=== PATIENT | male | born 1985 | race Caucasian/White ===

== ENCOUNTER → 2018-02-16 | Outpatient (RCR) | payer MEDICARE, MEDICAID ==
--- NOTE | 2017-11-19 09:16 | OT INITIAL EVALUATION ---
SUBJECTIVE: Patient is a 32 year old left hand dominant male s/p anoxic brain injury (TBI) on May 20, 2004 due to an attempt hang himself with a tie on a jungle gym at a local park in [place] where he was living at the time. 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 Currently, patient lives in [place] in his own apartment with no room mates. Patient does receive services 2 times a day for 30 minutes from [facility] Services to help with ADLs. Patient is able to dress himself and complete grooming and hygiene activities. The mother was present for this evaluation and was able to provide the past history and current situation with her son. Family is very involved in his care, but would like to see the patient be more independent with ADLs and IADLs. 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 Right = 48.3# (Age/gender normative= 121.8#) Left= 52# (Age/gender normative= 110.4#) Lateral Pinch Right = 19.2# (Age/gender normative= 26.4#) Left= 14.7# (Age/gender normative= 26.2#) 3 Point Pinch Right = 16# (Age/gender normative= 24.7#) Left= 11.5# (Age/gender normative= 25.4#) Sensation: reports of numbness in the finger tips of his left hand Special Test: 9 Hole Peg Test (dexterity) Right= 47 seconds (Age/gender normative= 17.7 seconds) Left= 1 minute and one second (Age/gender normative= 18.7 seconds) ASSESSMENT Patient presents with bilateral involuntary movements of the arms which affects his ability to 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 Patient does have excellent UB strength and AROM is WFL bilaterally. Patient does have decreased bilateral crew member and pinch strength. Fine motor coordination in both hands has been affected. The left demonstrated with more difficulty in fine motor activities compared to the right hand. Patient does have a difficult time is recalling step to self cares and would benefit from memory strategies and education on the use of adaptive equipment to help increase his independence with basic self cares and higher level self cares. Patient to benefit from skilled OT intervention to help increase independence with ADLs and IADLs. Short Term Goals 1. Patient will increase crew member strength of both hands by 5# in order to hold onto objects during self care activities. 2. Patient will decrease his time on the 9 Hole Peg Test by 3 seconds in order to complete self cares in a timely manner. 3. Patient will use a visual management system in his apartment to help him located items and place them back into their proper spot. 4. Patient will use a visual management system in his environment to help with cuing of when to perform certain activities like bathing and doing chores. 5. Patient will use a visual management system to help him with grocery shopping and when to place items on the list to purchase from the store. PLAN: Plan to see patient 2 times a week for 6-12 weeks. Plan of care to include : self care re-training, ther ex, there act, adaptive equipment training, energy conservation techniques Thank you for this referral. If you have any questions, concerns, or comments about this report or plan, please contact me at [phone]. Samira Thomas MS, OTR/L Occupational Therapist [facility]
--- NOTE | 2017-12-06 11:48 | SPEECH INITIAL EVALUATION ---
INITIAL SPEECH THERAPY EVALUATION REPORT Patient Name: Jesus Cordero Date of Evaluation: 11-18-2017, 11-30-17 ( pt cx d/t illness between eval dates) Patient : 1985, 32 years Clinician: Aster Velasquez M.S., CCC-DRUG ROOM OPERATOR, Sheba Ha, [facility] Treatment Dx: Moderate Cognitive Deficit BACKGROUND The patient is a 32 year old male who is experiencing an increase cognitive deficits secondary to an anoxic brain injury in 2004. The patient was referred for an evaluation by his physician. He attended the evaluation with his mother , who informed the therapists about the history of his diagnosis and treatment. His mother reported that cognitive deficits are the main concern right now, as the patient is now living in his own apartment through [employer] housing here in [place]. The patient receives support through [employer] for 30 minutes twice a day for assistance in cooking and laundry. His mother reported the use of external memory aids throughout his apartment, but reported that he often forgets to refer to those aids. The patient travels with his backpack which holds his phone and iPad. He uses his phone and iPad primarily as memory aids (e.g., pictures of common locations, reminders on his calendar, etc.). A cognitive evaluation further assessed the specific areas of cognitive concern and the overall severity of deficit. COGNITION Scales of Cognitive Ability for Traumatic Brain Injury (SCATBI) This assessment is a measure of cognitive deficits associated with non- penetrating trauma to the head including traumatic brain injury / acquired brain damage. This measure determined the following results: Subtest Standard Score Percentile Rank SCATBI Standard Score SCATBI Percentile Rank SCATBI Severity Perception and Discrimination 86 18 Moderate Orientation 76 6 Severe Organization 115 84 Borderline Normal Recall 107 68 Mild Reasoning 95 37 Moderate Total 479 Moderate The subtests of the SCATBI assess a hierarchy of cognitive/linguistic skills and performance. The patient scored a total of 479, Moderate Severity (447-481) , on the overall severity scale for the SCATBI. Severe deficits were noted in the orientation section of the SCATBI. The patient required multiple choices options to answer 9 of the questions and of those 9, he answered 3 accurately. To answer the question regarding the time of day, the patient referred to the clock on the wall to orient himself and then independently answered the question. Specific areas of moderate deficits include reasoning and perception/ discrimination tasks. Mild deficits were noted in recall. The patient demonstrated more difficulty with tasks that involved delayed recall. During another recall task, the patient was asked to list words that began with /r/ and then words that began with /d/. The patient repeated words that began with / r/ (e.g., rash and rave) twice, indicating that he may have forgotten that he already stated that word. The patients strengths involved organization tasks. His overall score on organization was 115, placing him in the borderline normal range for that area. The patient demonstrated his ability to accurate categorize items, organize by size, organize by function, alphabetize, organize events in a story, and organize a procedure. The patient demonstrated more difficulty with organizing holidays according to the time of the year that they occur. LOC / Participation: Alert and cooperative Follows instructions: Yes Orientation: oriented to person. Patient required an external cue to orient to the time and could not recall where he was. SPEECH: Decreased intelligibility due to articulation errors inlcuding severe hypernasality and vowel and consonant distortions. VOICE: Severe hypernasality, vowel/consonant distortion DYSPHAGIA: Mother reported coughing episodes and difficulty with certain foods, including rice. She reported that the patient prefers softer foods. Anterior spillage noted during the evaluation when the patient took a sip of water from a cup. The patients swallow hx includes the use of a g-tube to meet nutritional needs for 3 years post injury? And vital stim therapy to increase swallow function. His mother also reported no recent episodes of pneumonia. SUMMARY COGNITION/LANGUAGE SUMMARY Cognitive Deficits: Moderate deficits. Please see above for details FUNCTIONAL COMMUNICATION The patient presents with mild to moderate cognitive linguistic deficits that reduce functional communication in the home and community, reducing safety and independence. The patient will benefit from ST to address current deficits and allow him to reach personal goals of continuing to live independently with assist from [facility] and independence with transportation, work/volunteer activities , and all IADLS. RECOMMENDATIONS 1. ST 2x/wk to address cognitive deficits to promote maximum function for daily , independent living. PROGNOSIS: Excellent. Patient demonstrates motivation and has excellent family support. PLAN OF CARE Short Term Goals 1. The patient will perform immediate/short term memory tasks at 90% independently for successful communication related to patient independence / safety / social interaction / care and comfort/ medical details / progress / personal education goals/ and work. 2. The patient will learn to use 2-3 memory aids (i.e., high tech or low tech) with increasing independence by the end of 10 sessions. 3. The patient will explain/describe daily events, opinions, activities in a sequential and organized manner using an external memory aid (e.g., calendar, journal, etc.) at 95%. Long-Term Goals 1. The patient will perform executive function and memory tasks for successful functional communication related to patient independence / safety / social interaction / care and comfort/ medical details / progress with min assist. Thank you for this referral. Please call [phone] Aster Velasquez M.S., [facility]-DRUG ROOM OPERATOR, Sheba Ha, [facility] Physician Signature Date MTDD
--- NOTE | 2017-12-06 15:47 | PT INITIAL EVALUATION ---
MEDICAL DIAGNOSIS: V15.52 S06.2X9D Personal history of traumatic brain injury TREATMENT DIAGNOSIS: Same, dyskinesia DATE OF ONSET: 05/04/04 SUBJECTIVE: Jesus Cordero (Danny) presents to PT for diffuse TBI 05/2004. He now lives in an apartment in [place], and has 1/2 hour of [facility] services twice a day to help with cooking. His mother relates he sits on his low back, not his pelvis, he has loss of balance when standing after sitting for awhile, and he looks at the ground a lot when he walks. Catrachito denies pain. REHAB PROBLEM LIST: Impaired Cognition Decreased Strength Impaired Transfers Decreased Balance Decreased Mobility Decreased Gait PREVIOUS MEDICAL HISTORY: Depression OCCUPATION: Disabled OBJECTIVE: Posture: Standing: Heels 6" apart, midline trunk and head. Sitting: Catrachito leans to one side or leans onto his back instead of sitting on his pelvis. ROM: LE's WFL. Strength: Functional squat 90 degrees, calves 3/5. Mobility: Sit to in house cra one attempt without UE use, infrequent balance loss with self-recovery. CB&M (Community Balance & Mobility Scale) 52/96, a 54% impairment. Gait: Catrachito ambulates with feet passing each other and clearing the floor, minimal push off B with normal line of progression. Reciprocating gait on stairs with handrail. Balance: Double limb support. Single leg stand 1 second, R and L. Wagoner Balance Assessment 46/56, with difficulty with single leg, tandem stand tasks, arms writhing with balance challenges. Dyskinesia presents with foot placement tasks , tandem stand. ASSESSMENT: Catrachito Cordero presents with dyskinesia, postural changes, altered balance and gait. He could benefit from PT to improve posture and reduce fall risk. He did well with balance and strengthening today. Short Term Goals 4 weeks: Catrachito sits midline on his pelvis. 6 weeks: Catrachito demonstrates push off in gait, scores 55 to 60 on the CB&M for reduced fall risk. Patient's Goals Run and do aerobics. PLAN: Patient to be seen for Strengthening/condition Spinal Stabilization Stretching Neuromuscular Re-ed Gait Trg/Balance Trg Home Exercise Program 2x/Week for 6 Weeks Thank you for this referral. If you have any questions, comments, or concerns about this report or plan, please contact me at . [facility]
--- NOTE | 2018-01-12 15:14 | PT PLAN OF CARE ---
Physician: Taryn Dean PA-C Patient is being seen: 2x/week Therapist: Lucrecia Smith, YAMILE Medical Diagnosis: V15.52 S06.2X9D Personal history of traumatic brain injury Treatment Diagnosis: Same, dyskinesia Date of Onset: 05/04/04 Date of Initial Evaluation: 12/06/17 Date patient was last seen: 01/12/18 Number of treatments: 10 Number of cancellations/No shows: 1 INTERVENTIONS: Strengthening/condition Spinal Stabilization Stretching Neuromuscular Re-ed Gait Trg/Balance Trg Home Exercise Program GOALS: 4 weeks: Catrachito sits midline on his pelvis. (progressing) 6 weeks: Catrachito demonstrates push off in gait (progressing), scores 55 to 60 on the CB&M for reduced fall risk (not met). PATIENT'S GOAL: Run and do aerobics. (not met) Patient Compliance: Excellent Prognosis: Good Reasons for continuing therapy: S: Catrachito has pushed himself in therapy. His mother relates she's noticed postural improvement in Catrachito. Posture: Standing: Heels 4" apart, midline trunk and head. Sitting: Catrachito now sits almost midline, head often tilted. Gait: Catrachito now has early push off. He has dyskinesia with tandem gait and still arches his lumbar spine instead of using his abdomen for stability in gait and standing unless cued. Mobility/Balance: Sit to body painter one attempt without UE use, no balance loss. CB&M (Community Balance & Mobility Scale) 40/96, a 58% impairment, a slightly lower score than evaluation. He scored one point more on the Wagoner Balance Assessment, 47 points today. Catrachito is now able to keep eyes fixed on target, turning his head and ambulating in a straight line. He still has writhing hands in balance tasks but less trunk shifting. A/P: Jesus Cordero has improved coordination, gait and could benefit from continued PT to work trunk stability, coordination, head and trunk posture, dynamic balance. If you agree, we'll continue 2x/week another 6 weeks to goals set. Thank you. ARNULFO
--- NOTE | 2018-01-26 10:20 | SLP PLAN OF CARE ---
SPEECH PATHOLOGY PROGRESS REPORT 10th Visit Report Physician: Taryn Dean Pa-C Patient Name: Jesus Cordreo Date of Report: 01/20/18 Patient : 1985, 32 years Clinician: Aster Velasquez M.S., CCC-TYPING ELEMENT MACHINE OPERATOR Treatment Dx: Moderate Cognitive Deficit BACKGROUND The patient is a 32 year old male who is experiencing an increase cognitive deficits secondary to an anoxic brain injury in 2004. The patient continues to receive support through [facility] for 30 minutes twice a day for assistance in cooking and laundry. He uses his phone and iPad as memory aids (e.g., pictures of common locations, reminders on his calendar, etc.). He spends most weekends with his family. He has been attending ST at [facility] 2xwk for a total of 10 visits. He continues to appear in general good health. Current POC The patient has been working on the following short term goals: 1. The patient will perform immediate/short term memory tasks at 90% independently for successful communication related to patient independence / safety / social interaction / care and comfort/ medical details / progress / personal education goals/ and work. 2. The patient will learn to use 2-3 memory aids (i.e., high tech or low tech) with increasing independence by the end of 10 sessions. 3. The patient will explain/describe daily events, opinions, activities in a sequential and organized manner using an external memory aid (e.g., calendar, journal, etc.) at 95%. SUMMARY Continue Current POC. The patient is progressing toward ST goals. Increased functional communication is recorded. Pt is increasing independent use of external high tech memory aides including ipad apps that sync to mother's devices. Pt using devices to support cognitive communication and memory to support independence with IADL's and daily schedule. RECOMMENDATION Patient would benefit from continued ST 2wk6 to address above POC Thank you for referring this [place] [facility] [place]. Please call [phone] to contact the TYPING ELEMENT MACHINE OPERATOR. Respectfully, Aster Velasquez M.S., [facility])-TYPING ELEMENT MACHINE OPERATOR Physician Signature Date MTDD
--- NOTE | 2018-02-11 09:20 | OT DISCHARGE SUMMARY ---
SUBJECTIVE: Patient is a 32 year old left hand dominant male s/p anoxic brain injury (TBI) on May 20, 2004 due to an attempt hang himself with a tie on a jungle gym at a local park in [place] where he was living at the time. 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 Currently, patient lives in [place] in his own apartment with no room mates. Patient does receive services 2 times a day for 30 minutes from [facility] Services to help with ADLs. Patient is able to dress himself and complete grooming and hygiene activities. The mother was present for this evaluation and was able to provide the past history and current situation with her son. Family is very involved in his care, but would like to see the patient be more independent with ADLs and IADLs. Patient was seen for 10 visits-2 were at his apartment. Previous Medical History: please refer to chart Current Limitations: bilateral involuntary movements of the head, neck and arms ; memory and cognitive deficits Occupation: N/A OBJECTIVE: ROM: Right Left Shoulder Flexion WFL WFL Shoulder Extension WFL WFL Shoulder Abduction WFL WFL Elbow Flexion WFL WFL Wrist Extension WFL WFL Strength: MMT: Right Left Shoulder Flexion 5/5 5/5 Shoulder Extension 5/5 5/5 Shoulder Abduction 5/5 5/5 Elbow Flexion 5/5 5/5 Wrist Extension 5/5 5/5 (5= normal, 4= good, 3= fair, 2= poor, 1= trace) Technical Data Analyst Right = 48.3#, now 64.7# (Age/gender normative= 121.8#) Left= 52#, now 61.3# (Age/gender normative= 110.4#) Lateral Pinch Right = 19.2#, now 22.3# (Age/gender normative= 26.4#) Left= 14.7#, now 17.5# (Age/gender normative= 26.2#) 3 Point Pinch Right = 16#, now 19.3# (Age/gender normative= 24.7#) Left= 11.5#, now 14.8# (Age/gender normative= 25.4#) Sensation: reports of numbness in the finger tips of his left hand Special Test: 9 Hole Peg Test (dexterity) Right= 47 seconds, now 47 seconds (Age/gender normative= 17.7 seconds) Left= 1 minute and one second, now 1 minute and one second (Age/gender normative= 18.7 seconds) ASSESSMENT Patient increased strength bilaterally with base draw operator and pinch, but stayed the same with the fine motor coordination of the hands. The involuntary tremors are still present and did not decrease over the course of treatment sessions. Patient is able to perform self cares with his hands without assistance. Patient was receptive to making visual changes to the existing labels and check sheets within his apartment. Changing the labels to white backgrounds with black letters and changing on a monthly basis colorful sheets with important information and check lists with be beneficial. Patient would benefit from OT services to help with additional needs within the apartment lick check lists for bathing, grooming, hygiene and shopping which OP OT services is unable to provide as these types of treatments need to be conducted within the home environment. Short Term Goals 1. Patient will increase base draw operator strength of both hands by 5# in order to hold onto objects during self care activities.MET 2. Patient will decrease his time on the 9 Hole Peg Test by 3 seconds in order to complete self cares in a timely manner. NO CHANGE 3. Patient will use a visual management system in his apartment to help him located items and place them back into their proper spot. MET 4. Patient will use a visual management system in his environment to help with cuing of when to perform certain activities like bathing and doing chores. MET 5. Patient will use a visual management system to help him with grocery shopping and when to place items on the list to purchase from the store. MET PLAN: Plan to D/C patient from OT services at this time. Thank you for this referral. If you have any questions, concerns, or comments about this report or plan, please contact me at [phone]. Samira Thomas MS, OTR/L Occupational Therapist [facility]
--- NOTE | 2018-02-16 14:36 | PT PLAN OF CARE ---
Physician: Taryn Dean PA-C Patient is being seen: 2x/week Therapist: Lucrecia Smith PT Medical Diagnosis: V15.52 S06.2X9D Personal history of traumatic brain injury Treatment Diagnosis: Same, dyskinesia Date of Onset: 05/04/04 Date of Initial Evaluation: 12/06/17 Date patient was last seen: 02/16/18 Number of treatments: 20 Number of cancellations/No shows: 0 INTERVENTIONS: Strengthening/condition Spinal Stabilization Stretching Neuromuscular Re-ed Gait Trg/Balance Trg Home Exercise Program GOALS: 4 weeks: Catrachito sits midline on his pelvis. met 6 weeks: Catrachito demonstrates push off in gait (progressing), scores 55 to 60 on the CB&M for reduced fall risk (met). PATIENT'S GOAL: Run and do aerobics. (progressing) Patient Compliance: Excellent Prognosis: Good Reasons for continuing therapy: S: Catrachito notes he's transferring out of a car smoothly, it's easy to ambulate after sitting awhile. Posture: Standing: Heels 3" apart, midline trunk and head, often forward head. Sitting: Catrachito sits midline, more on his pelvis and not his low back. Strength: Eccentric quad strength 148 lbs. B. Gait/Balance: Community Balance and Mobility Scale 62/96, a 35% impairment, improved fro a 42% impairment on 01/12/18. Catrachito can now ambulate quickly with 180 deg. turns with control, at a fast cadance has push off in gait, but more foot flat at normal pace. Single leg stand 3 seconds, L and R. Catrachito has midline head/trunk in spinal stabilization exercise but has forward head when ambulating, looking at the ground. Mobility: Sit to brake lining curer one attempt without UE use, no balance loss. A/P: Jesus Cordero is improving balance, gait, mobility, coordination. His frequent forward head posture seems to be more visually based, not cervical weakness. If you agree, we'll finish the final 3 weeks with advanced exercise, building a HEP of spinal stabilization, aerobics. Thank you. ARNULFO
== END ==
LOC: OT 11-18 13:08 → PT 12-02 13:00
PROVIDERS: ATTEND Physician Assistant
DX: S06.2X9D Diffuse traumatic brain injury with loss of consciousness of unspecified duration, subsequent encounter (principal); Z91.5 Personal history of self-harm; G24.9 Dystonia, unspecified; F32.9 Major depressive disorder, single episode, unspecified; R26.89 Other abnormalities of gait and mobility; X58.XXXD Exposure to other specified factors, subsequent encounter
CPT/HCPCS: 92507; 96125; 97110; 97112; 97127; 97162; 97165; 97168; 97530; 97535; G0515

== ENCOUNTER 2018-03-31 11:15 | Outpatient (RCR) | payer MEDICARE, MEDICAID ==
--- NOTE | 2018-02-23 13:30 | PT PLAN OF CARE ---
Physician: Taryn Dean PA-C Patient is being seen: 2x/week Therapist: Lucrecia Smith PT Medical Diagnosis: V15.52 S06.2X9D Personal history of traumatic brain injury Treatment Diagnosis: Same, dyskinesia Date of Onset: 05/04/04 Date of Initial Evaluation: 12/06/17 Date patient was last seen: 02/23/18 Number of treatments: 21 Number of cancellations/No shows: 0 INTERVENTIONS: Strengthening/condition, Spinal Stabilization, Neuromuscular Re- ed, Balance Trg GOALS: 4 weeks: Catrachito sits midline on his pelvis. met 6 weeks: Catrachito demonstrates push off in gait (progressing), scores 55 to 60 on the CB&M for reduced fall risk (met). PATIENT'S GOAL: Run and do aerobics. (progressing) Patient Compliance: Excellent Prognosis: Good Reasons for continuing therapy: S: This is our business' office 3 month note. Catrachito's 20th visit note was done last week. Posture: Standing: Heels 3" apart, midline trunk and head. Sits even on pelvis inconsistently. Gait/Balance: Catrachito's able to perform functional movement balance exercises with more midline trunk and more foot coordination B. He performs dynamic core strengthening with midline spine. He carries his head more upright when he doesn 't need to use vision for balance. On 02/16/18, CB&M (Community Balance & Mobility Scale) 62/96, a 35% impairment. A/P: Jesus Cordero is improving balance, coordination, gait. His forward head postures are more vision for balance and not cervical weakness. If you agree, we'll continue to mid-March at 2x/week and then DC PT to [facility] supervised exercise. Thank you. ARNULFO
--- NOTE | 2018-03-18 14:19 | PT PLAN OF CARE ---
Physician: Taryn Dean PA-C Patient is being seen: 2x/week Therapist: Lucrecia Smith, YAM[facility] Medical Diagnosis: V15.52 S06.2X9D Personal history of traumatic brain injury Treatment Diagnosis: Same, dyskinesia Date of Onset: 05/04/04 Date of Initial Evaluation: 12/06/17 Date patient was last seen: 03/18/18 Number of treatments: 28 Number of cancellations/No shows: 0 INTERVENTIONS: Strengthening/condition, Spinal Stabilization, Neuromuscular Re- ed, Gait Trg/Balance Trg, Home Exercise Program GOALS: 4 weeks: Catrachito sits midline on his pelvis. (met) 6 weeks: Catrachito demonstrates push off in gait (met), scores 55 to 60 on the CB&M for reduced fall risk (met). PATIENT'S GOAL: Run and do aerobics. (met) Patient Compliance: Excellent Prognosis: Good Reasons for discontinuing therapy: S: Catrachito reports he moves more easily, more fluidly. His [facility] aideGonzalo was present at the last visit to learn HEP. Posture: Standing: Heels 4" apart, midline trunk and head. Sitting: Catrachito sits midline, on his pelvis in hard chairs, leans back in soft chairs. ROM: LE's WFL. Strength: Functional squat 120 degrees, calves 4/5. Gait/Balance: aCtrachito now ambulates with push off B, turns with control <4 seconds , upright head when his balance isn't challenged. He looks down when he's doing narrow KUSHAL, foot placement tasks, and if he looks forward, he demonstrates foot dyskinesia B. He has run short distances and stops quickly with balance control. Mobility: Sit to wind site manager one attempt without UE use, stead. CB&M (Community Balance & Mobility Scale) 61/96, a 36% impairment. Other: Catrachito has biked up to 20 minutes on a recumbent bike with normal HR. A/P: Catrachito Cordero has improved balance, gait, posture with PT. I'll DC PT to [facility] supervised postural strengthening and kinesthetics HEP and suggestion he continue stationary biking, all 3x/week. I also recommend Catrachito return in October, for a balance/gait/posture tune-up for a short time. Thank you. ARNULFO
--- NOTE | 2018-03-29 14:53 | SLP PLAN OF CARE ---
SPEECH PATHOLOGY PROGRESS REPORT Physician: Dr. Taryn Dean Progress Note Date: 03/29/18 Clinician: Nila Becerra M.S., [facility]-PROFESSOR OF BUSINESS ADMINISTRATION, Hilary Youssef B.A., [facility] [place] Patient: Jesus Cordero : 1985 The patient has been attending ST at [facility] 2/wk since 02/22/18. He attends scheduled visits regularly with no missed/cancelled visits since last report. The patient continues to appear in general good health. Current POC The patient has been working on the following short term goals: 1. The patient will perform immediate/short term memory tasks at 90% independently for successful communication related to patient independence / safety / social interaction / care and comfort/ medical details / progress / personal education goals/ and work. As of 03/29/18: Progressing. Pt has been implementing semantic cues to increase memory recall for short term tasks and longer periods of recall. Pt averages 85 % accuracy with min assist and 3-4 cues to recall objects, pictures and information. Pt can independently name cues (color, shape, size, function, location) to increase accuracy. 2. The patient will learn to use 2-3 memory aids (i.e., high tech or low tech) with increasing independence by the end of 10 sessions. As of 03/29/18: Progressing. Pt is creating reminders in a calendar and a journal bc with min assist. Pt requires prompting to initiate the use of these aids. 3. The patient will explain/describe daily events, opinions, activities in a sequential and organized manner using an external memory aid (e.g., calendar, journal, etc.) at 95%. As of 03/29/18: Progressing. Pt can describe daily events in an organized manner using the calendar bc with 90% accuracy and min assist accessing the bc. Pt is working on independently creating reminders in the bc to improve daily descriptions for unscheduled periods of time. Pt has begun creating journal entries, with moderate assist, to record opinions and preferences to refer to at a later time. SUMMARY Continue Current POC. The patient is progressing toward ST goals. Increased independence has been observed. RECOMMENDATION Patient would benefit from continued ST to address above POC 2wk/x12 Thank you for referring this patient to [facility] - [place], [place], Speech- Language Pathology. Please call [phone] to contact the PROFESSOR OF BUSINESS ADMINISTRATION. Nila Noyola M.S., CCC-PROFESSOR OF BUSINESS ADMINISTRATION [*] NAMOYD
== END 2018-03-31 18:00 | disposition home or self-care (01) ==
LOC: PT 11:15
PROVIDERS: ATTEND Physician Assistant
DX: S06.2X9D Diffuse traumatic brain injury with loss of consciousness of unspecified duration, subsequent encounter (principal); Z91.5 Personal history of self-harm; G24.9 Dystonia, unspecified; F32.9 Major depressive disorder, single episode, unspecified; R26.89 Other abnormalities of gait and mobility; X58.XXXD Exposure to other specified factors, subsequent encounter